=== PATIENT | female | born 1970 | race Two or more races ===

== ENCOUNTER 2016-10-21 11:20 | Emergency (ER) | payer OTHER ==
[~2016-10-21] VITALS: Ht 167.6 cm; Wt 82.1 kg
[2016-10-21] MEDS ORDERED: diphenhydrAMINE HCL 50 MG/ML VIAL ONE (12:17)
[2016-10-21] MEDS ORDERED: METOCLOPRAMIDE HCL 10 MG/2 ML VIAL ONE (12:17)
[2016-10-21] MEDS ORDERED: IV SET PRIMARY PUMP SET 1 EA INFUS.SET MC ONE (12:18)
[2016-10-21] MEDS ORDERED: IV NS 0.9% 1,000 ML ONE (12:18)
--- NOTE | 2016-10-21 12:30 | NUR ---
PT TAKEN TO CT.
[2016-10-21] MEDS: diphenhydrAMINE HCL 50 MG/ML VIAL IV ONE (12:40)
[2016-10-21] MEDS: IV NS 0.9% 1,000 ML BAG IV ONE (12:43)
[2016-10-21] MEDS: METOCLOPRAMIDE HCL 10 MG/2 ML VIAL IV ONE (12:43)
--- NOTE | 2016-10-21 12:45 | NUR ---
IV ACCESS STARTED. BLOOD DRAWN FOR LABS. PT MEDICATED ORDERED.
[2016-10-21 12:50] LABS: BASOPHILS # (AUTO) 0.1 /CMM (0.0-0.2); BASOPHILS % (AUTO) 0.7 % (0.0-2.0); EOSINOPHILS # (AUTO) 0.2 /CMM (0.0-0.7); EOSINOPHILS % (AUTO) 2.3 % (0.0-6.0); HEMATOCRIT 42 % (33-45); LYMPHOCYTES # (AUTO) 1.4 /CMM (0.8-4.8); LYMPHOCYTES % (AUTO) 16.6 % (20.0-44.0); MEAN CORPUSCULAR HEMOGLOBIN 29 PG (26.0-33.0); MEAN CORPUSCULAR HGB CONC 33 g/dl (31.0-36.0); MEAN CORPUSCULAR VOLUME 86 fL (82-100); MONOCYTES # (AUTO) 0.4 /CMM (0.1-1.30); MONOCYTES % (AUTO) 4.5 % (2.0-12.0); NEUTROPHILS # (AUTO) 6.4 /CMM (1.8-8.9); NEUTROPHILS % (AUTO) 75.9 % (43.0-81.0); PLATELET COUNT (AUTO) 476 /CMM (150-450); RDW COEFFICIENT OF VARIATION 13.3 (11.5-15.0); WHITE BLOOD COUNT (AUTO) 8.5 K/uL (4.3-11.0)
[2016-10-21 12:59] LABS: CALCIUM, SERUM 9.6 mg/dL (8.5-10.1); CREATININE 0.5 mg/dL (0.6-1.3); POTASSIUM 4.1 mmol/L (3.5-5.1)
[2016-10-21 13:04] LABS: INR 0.93 (0.87-1.13); PROTHROMBIN TIME 9.7 SECS (9.5-12.7)
--- NOTE | 2016-10-21 13:29 | NUR ---
LUMBAR PUNCTURE DONE AT BS WITH SHANI HOPPER AND DR. DYER
--- NOTE | 2016-10-21 14:25 | NUR ---
Patient is resting comfortably in bed with eyes closed. Easily aroused. VSS
[2016-10-21 15:08] LABS: CSF APPEARANCE CLEAR (CLEAR); CSF COLOR COLORLESS (COLORLESS); CSF WHITE BLOOD CELL COUNT 1 /cumm (0-5)
[2016-10-21 15:26] LABS: CSF GLUCOSE 69 mg/dL (40-70); CSF PROTEIN 40.7 mg/dL (15-45)
--- NOTE | 2016-10-21 15:36 | NUR ---
IV removed. Catheter intact and site benign. Pressure and 4x4 applied to site. No bleeding noted.Patient discharged to home in stable condition. Written and verbal after care instructions given. Patient verbalizes understanding of instruction.
[2016-10-21 15:41] VITALS: BP 107/61
== END 2016-10-21 15:43 | disposition home or self-care (01) ==
LOC: ER 11:25
DX: G44.209 Tension-type headache, unspecified, not intractable (principal); E03.9 Hypothyroidism, unspecified; E11.9 Type 2 diabetes mellitus without complications; M54.2 Cervicalgia; F41.9 Anxiety disorder, unspecified; R79.1 Abnormal coagulation profile; R11.2 Nausea with vomiting, unspecified
CPT/HCPCS: 36415; 70450-TC; 80048-TC; 85025-TC; 85730-TC; 87070-TC; 89051-TC; A4606; A6403; J1200; J2765; J7030; Z7610

== ENCOUNTER 2023-12-02 19:43 | Emergency (ER) | payer OTHER ==
[~2023-12-02] VITALS: Ht 160 cm; Wt 81.6 kg
[2023-12-02 21:34] VITALS: TEMP 98.5
[2023-12-02 21:40] LABS: BASOPHILS # (AUTO) 0.1 K/uL (0.0-0.2); BASOPHILS % (AUTO) 0.7 % (0.0-2.0); EOSINOPHILS # (AUTO) 0.1 K/uL (0.0-0.7); EOSINOPHILS % (AUTO) 0.6 % (0.0-6.0); HEMATOCRIT 36 % (33-45); HEMOGLOBIN 12.1 g/dL (11.5-14.8); MEAN CORPUSCULAR HEMOGLOBIN 29 PG (26.0-33.0); MEAN CORPUSCULAR HGB CONC 34 g/dl (31.0-36.0); MEAN CORPUSCULAR VOLUME 87 fL (82-100); MONOCYTES # (AUTO) 0.8 K/uL (0.1-1.30); MONOCYTES % (AUTO) 6.7 % (2.0-12.0); NEUTROPHILS # (AUTO) 10.4 K/uL (1.8-8.9); PLATELET COUNT (AUTO) 393 K/uL (150-450); RED BLOOD CELL COUNT(AUTO) 4.15 MIL/uL (4.0-5.2); WHITE BLOOD COUNT (AUTO) 12.4 K/uL (4.3-11.0)
[2023-12-02 21:47] LABS: CALCIUM, SERUM 9.5 mg/dL (8.5-10.1); CREATININE 0.5 mg/dL (0.6-1.3); POTASSIUM 3.4 mmol/L (3.5-5.1)
[2023-12-02] MEDS ORDERED: METOCLOPRAMIDE HCL 10 MG/2 ML VIAL ONE (21:54)
[2023-12-02 21:57] LABS: ALBUMIN 3.4 g/dL (3.4-5.0); BILIRUBIN,TOTAL 1.5 mg/dL (0.2-1.0); TOTAL PROTEIN, SERUM 7.5 g/dL (6.4-8.2)
[2023-12-02] MEDS: IV NS 0.9% 1,000 ML BAG IV ONE (22:01)
[2023-12-02] MEDS: METOCLOPRAMIDE HCL 10 MG/2 ML VIAL IV ONE (22:23)
[2023-12-03 02:43] VITALS: BP 118/84; O2SAT 97
== END 2023-12-03 02:44 | disposition home or self-care (01) ==
LOC: ER 19:45
DX: K52.9 Noninfective gastroenteritis and colitis, unspecified (principal); G43.909 Migraine, unspecified, not intractable, without status migrainosus; E11.9 Type 2 diabetes mellitus without complications; R06.02 Shortness of breath; E03.9 Hypothyroidism, unspecified; Z98.890 Other specified postprocedural states; Z20.822 Contact with and (suspected) exposure to COVID-19
CPT/HCPCS: 99285; 96374; 76705; 96361; 87426; 93005 ×2; 87804 ×2; 85025; 36415; 80053; 84484; J2765; J7030